=== PATIENT | female | born 1985 | race Caucasian/White ===

== ENCOUNTER → 2016-11-07 | Outpatient (CLI) | payer SELFPAY ==
[~2016-11-07] MED LIST: PRENAT PO
== END | disposition home or self-care (01) ==
LOC: CANPRECLI → OBT 13:35
PROVIDERS: ATTEND Obstetrics & Gynecology
DX: Z02.9 Encounter for administrative examinations, unspecified (principal)

== ENCOUNTER 2016-11-26 19:05 | Outpatient (CLI) | payer OTHER ==
[~2016-11-26] VITALS: Ht 172.7 cm; Wt 75.9 kg
[2016-11-26] MEDS ORDERED: PRENAT PO (19:17)
[2016-11-26 19:18] VITALS: BP 106/60; PULSE 92; RESP 18
--- NOTE | 2016-11-26 20:30 | PN ---
Date/Time of Note Date/Time of Note DATE: 11/26/16 TIME: 20:17 OB Subjective Subjective Subjective 31 yo P2 @ 35 wks, presents with nausea and vomitting, now completely resolved. She also had a headache, which is now resolved. Good FM, no VB, no LOF, no ctx patient still feels some dizziness OB Objective Objective Objective Abdomen- gravid, n/t SVE- deferred FHT-140's; Cat I [place]-no ctx Abdomen: WNL Membranes: Intact Varibility: Moderate Contractions on Admission: None OB Assessment/Plan Other Assessment: 31 yo P2@ 35 wks, w dizziness, nausea and vomitting now resolving - reassuring status Other plan: Will send CBC and electrolytes patient declines IV fluids if nml labs, will d/c home MICKY PATTERSON MD Nov 26, 2016 20:27
[2016-11-26 20:50] LABS: ADD SCAN DIFF NO
[2016-11-26 20:52] LABS: BASOPHIL # 0.1 10^3/ul (0.0-0.1); BASOPHILS % 0.7 % (0.0-2.0); EOSINOPHILS # 0.1 10^3/ul (0.0-0.5); EOSINOPHILS % 0.7 % (0.0-7.0); HEMATOCRIT 37.9 % (37.0-47.0); HEMOGLOBIN 12.5 g/dl (12.0-16.0); LYMPHOCYTES # 3.1 10^3/ul (0.8-2.9); LYMPHOCYTES % 20.8 % (15.0-51.0); MEAN CORPUSCULAR HEMOGLOBIN 26.7 pg (29.0-33.0); MEAN CORPUSCULAR VOLUME 80.8 fl (82.0-101.0); MEAN PLATELET VOLUME 10.9 fl (7.4-10.4); MONOCYTE # 0.9 10^3/ul (0.3-0.9); MONOCYTES % 5.8 % (0.0-11.0); NEUTROPHIL # 10.2 10^3/ul (1.6-7.5); NEUTROPHILS % 68.4 % (39.0-77.0); PLATELET COUNT 202 10^3/UL (140-415); RED BLOOD COUNT 4.69 10^6/ul (4.20-5.40); RED CELL DISTRIBUTION WIDTH 13.1 % (11.5-14.5); WHITE BLOOD COUNT 14.9 10^3/ul (4.8-10.8)
[2016-11-26 20:59] LABS: ADD UMIC NO; URINE BILIRUBIN (Dip) NEGATIVE (NEGATIVE); URINE BLOOD (Dip) NEGATIVE (NEGATIVE); URINE COLOR LT. YELLOW (YELLOW); URINE GLUCOSE (Dip) NEGATIVE (NEGATIVE); URINE KETONES (Dip) NEGATIVE (NEGATIVE); URINE LEUKOCYTE ESTERASE (Dip) NEGATIVE (NEGATIVE); URINE NITRITE (Dip) NEGATIVE (NEGATIVE); URINE TOTAL PROTEIN (Dip) NEGATIVE (NEGATIVE); URINE UROBILINOGEN (Dip) 0.2 E.U./dL (0.1-1.0)
[2016-11-26 21:07] LABS: ALBUMIN 3.9 g/dl (3.3-4.9)
[2016-11-26 21:08] LABS: POTASSIUM 3.9 mmol/L (3.5-5.1)
[2016-11-26 21:10] LABS: ALBUMIN/GLOBULIN RATIO 1.11; BILIRUBIN,INDIRECT 0.2 mg/dl (0-1.1); BILIRUBIN,TOTAL 0.2 mg/dl (0.2-1.3); CREATININE 0.45 mg/dl (0.44-1.00); TOTAL PROTEIN 7.4 g/dl (6.1-8.1)
[2016-11-26 21:11] LABS: CALCIUM 10.1 mg/dl (8.4-10.2)
== END 2016-11-26 21:36 | disposition home or self-care (01) ==
LOC: OBT 19:05 → L-D 19:06 → OBT 21:36
PROVIDERS: ATTEND Obstetrics & Gynecology
DX: O21.2 Late vomiting of pregnancy (principal); R42 Dizziness and giddiness; Z3A.35 35 weeks gestation of pregnancy
CPT/HCPCS: 80053; 81003; 85025; Z7500; G0463

== ENCOUNTER 2016-12-08 13:06 | Outpatient (CLI) | payer OTHER ==
[~2016-12-08] VITALS: Ht 172.7 cm; Wt 76.6 kg
[2016-12-08 13:17] VITALS: Ht 172.7 cm; Wt 76.6 kg
[2016-12-08 13:24] VITALS: BP 97/55; PULSE 120; RESP 20
--- NOTE | 2016-12-08 15:01 | RADRPT ---
PROCEDURE: US OB biophysical profile. CLINICAL INDICATION: decreased movements TECHNIQUE: Multiple sonographic images of the pelvis were obtained. The images were reviewed on a PACS workstation. COMPARISON: No prior studies are available for comparison. FINDINGS: There is a single viable intrauterine gestation. Cardiac activity is present with 140 beats per min tracey. There is a vertex presentation. The placenta is posterior. There is no evidence of placental abruption. There is a normal amount of amniotic fluid with an ALLEN = 17.9 cm. Biophysical profile: movement 2/2 tone 2/2. breathing 2/2 ALLEN 2/2 Total 05/09 RPTAT: AA . IMPRESSION: Normal biophysical profile. . .Iban Haskins MD, MD Date Time Electronically viewed and signed by .Iban Haskins MD, MD on 12/08/2016 15:01 .S/
--- NOTE | 2016-12-08 15:43 | TRIAGE ---
OB Triage Datetime Report Generated by CPN: 12/08/2016 15:42 Datetime: 12/08/2016 15:03 Labor Evaluation Frequency: 0 Monitor Mode: External Resting Tone [place]: Relaxed Monitor Mode: External US Variability: Moderate 6-25 bpm Decelerations: None Comments: 140 Membrane Status: Intact Datetime: 12/08/2016 14:21 Labor Evaluation Frequency: 0 Monitor Mode: External Resting Tone [place]: Relaxed Heart Rate FHR Baseline Rate: 140 Monitor Mode: External US FHR Baseline Changes: No Baseline Change Variability: Moderate 6-25 bpm Accelerations: 15X15 Decelerations: None Category: Category I Pain Presence: None/Denies Datetime: 12/08/2016 13:57 Comments: LOSS OF CONTACT BABY MOVED Datetime: 12/08/2016 13:48 Labor Evaluation Frequency: 0 Monitor Mode: External Resting Tone [place]: Relaxed Monitor Mode: External US FHR Baseline Changes: No Baseline Change Variability: Moderate 6-25 bpm Accelerations: 15X15 Decelerations: Prolonged Category: Category I Pain Assessment Pain Scale: 0 Pain Presence: None/Denies Datetime: 12/08/2016 13:43 Vaginal Exam Dilatation (cms): 0.5 Effacement (%): 30 Station: -2 Exam By: OS Vaginal Bleeding: None Cervix, Consistency: Firm Cervix, Position: Posterior Datetime: 12/08/2016 13:31 Labor Evaluation Frequency: 0 Monitor Mode: External US FHR Baseline Changes: No Baseline Change Variability: Moderate 6-25 bpm Accelerations: 10X10 Category: Category I Pain Assessment Pain Scale: 0 Pain Presence: None/Denies Datetime: 12/08/2016 13:23 Stage of : OB Triage Assessment Type: Triage Maternal Assessment Level of Consciousness: Fully Conscious DTR's/Clonus: DTRs 2+; No Clonus Headache: Denies Blurred Vision: No Respiratory Effort: Unlabored; Regular Rhythm; Equal Expansion Breath Sounds, Left: Clear and Equal Breath Sounds, Right: Clear and Equal Nausea/Vomiting: Denies RUQ Epigastric Pain: Denies Lower Extremities Edema: None Degree: None Upper Extremities Edema: None Degree: None Facial Edema: None Temperature Route: Oral Fall Risk Assessment History of Falling: (0) No Secondary Diagnosis: (0) No Ambulatory Aid: (0) Bedrest/Nurse Assist IV Therapy: (0) No Gait: (0) Normal/Bedrest/Immobile Mental Status: (0) Oriented to Own Ability Fall Score: 0 Fall Risk Score Definition: No Risk: No action required Monitor Mode: External Monitor Mode: External US Pain Assessment Pain Scale: 0 Vaginal Exam Dilatation (cms): deffer Datetime: 12/08/2016 13:13 Time of Arrival: 12/08/2016 13:13 EGA: 36.2 Arrived By: Ambulatory Arrived From: Dr. White Chief Complaint: decreased movement Movement: Decreased Contractions: Denies/Absent Contractions: NONE Rupture of Membranes: Denies Vaginal Bleeding: None Vaginal Discharge: Denies Recent Sexual Intercouse: Denies Abdominal Trauma: Not Applicable Patient Complaints: Cramping Additional Patient Complaints: chronic joint pains Time Provider Notified: 12/08/2016 14:02 Provider Notified: DR STEVENSON Initial Plan: PT SEEN BY DR STEVENSON ,NST AND BPP AND VE DONE Datetime: 11/26/2016 20:00 Stage of : OB Triage Temperature Route: Oral Labor Evaluation Frequency: 0 Monitor Mode: External Pattern: Normal: <= 5 Contractions in 10 Minutes Resting Tone [place]: Relaxed Heart Rate FHR Baseline Rate: 140 Monitor Mode: External US Variability: Moderate 6-25 bpm Accelerations: 15X15 Decelerations: None Category: Category I Pain Assessment Pain Scale: 6 Pain Presence: Constant Pain Type: Burning Pain Location: Abdomen Pain Goal: 0 Pain Relief Measures: Comfort Measures Datetime: 11/26/2016 19:29 Assessment Type: Triage Maternal Assessment Level of Consciousness: Fully Conscious DTR's/Clonus: DTRs 2+; No Clonus Headache: Denies Blurred Vision: No Respiratory Effort: Unlabored; Regular Rhythm; Equal Expansion Breath Sounds, Left: Clear and Equal Breath Sounds, Right: Clear and Equal Nausea/Vomiting: Denies RUQ Epigastric Pain: Denies Lower Extremities Edema: None Upper Extremities Edema: None Facial Edema: None Fall Risk Assessment History of Falling: (0) No Secondary Diagnosis: (0) No Ambulatory Aid: (0) Bedrest/Nurse Assist IV Therapy: (0) No Gait: (0) Normal/Bedrest/Immobile Mental Status: (0) Oriented to Own Ability Fall Score: 0 Fall Risk Score Definition: No Risk: No action required Datetime: 11/26/2016 19:27 Time of Arrival: 11/26/2016 18:51 EGA: 34.4 Arrived By: Ambulatory Arrived From: Home Chief Complaint: EPIGASTRIC PAIN, DIZZINESS AND VOMITTING Movement: Present Contractions: Denies/Absent Vaginal Bleeding: None Vaginal Discharge: Denies Patient Complaints: Nausea; Vomiting; Epigastric Pain Time Provider Notified: 11/26/2016 19:55 Provider Notified: ELVA Initial Plan: EFM, ASSESSMENT, CALL MD FOR ORDERS Datetime: 11/26/2016 19:25 Membrane Status: Intact
== END 2016-12-08 15:36 | disposition home or self-care (01) ==
LOC: OBT 13:06 → L-D 13:07 → OBT 15:36
PROVIDERS: ATTEND Obstetrics & Gynecology
DX: O36.8130 Decreased fetal movements, third trimester, not applicable or unspecified (principal); Z3A.36 36 weeks gestation of pregnancy
CPT/HCPCS: 76818; Z7500; G0463

== ENCOUNTER 2016-12-19 00:23 | Inpatient (IN) | payer OTHER ==
--- NOTE | 2016-12-08 16:17 | CONS ---
Date/Time of Note Date/Time of Note DATE: 12/08/16 TIME: 16:09 Consultation Date/Type/Reason Admit Date/Time December 08, 2069 OB triage consultation note Initial Consult Date Reason for Consultation Main complaint decreased movement epigastric pain 24 HR Interval Summary Free Text/Dictation 30 30 This patient is a 31 years old 3 para 2 whose last menstrual period was on April 03, 2016 . By . Ultrasound her due date was placed at January 03, 2017 which makes her 36 weeks and 2 days now She came to triage area complaining of decreased movement and epigastric pain since noontime On examination her vital signs are normal blood pressure 120/50 pulse rate 124 temperature 98.6 oxygen saturation 90. heart tone was normal averaging 1 40/min . On examination her ear nose throat appear to be normal neck was normal chest was clear. Abdomen was soft is having occasional contractions heart tone is normal baby apparently is in vertex presentation. NST was reactive and biophysical was performed which was reported as 8/8. . Posterior placenta no evidence of placenta abruption .. Amniotic fluid level was 17.9 cm On pelvic exam her cervix was 30% effaced head at -2 station cervix was 0.5 cm dilated Detailed Summary Eyes: No discharge, No no complaints, No other, No pain, No redness, No visual change ENT: No bleeding, No congestion, No discharge, No dysphagia, No no complaints, No other, No pain, No sore throat Respiratory: No cough, No no complaints, No other, No pain, No pleuritic pain, No shortness of breath, No sputum, No wheezing Cardiovascular: No chest pain, No edema, No lightheadedness, No no complaints, No orthopenea, No other, No palpitations, No paroxysmal nocturnal dyspnea Gastrointestinal: No blood, No constipation, No decreased appetite, No diarrhea , No flatus, No nausea, No no complaints, No other, No pain, No passing stool, No vomiting Genitourinary: other (As I mentioned in the text her cervix was slightly dilated 30% effaced and head at -2 station), No bleeding, No discharge, No dysuria, No flank pain, No hematuria, No no complaints Musculoskeletal: No back pain, No bone/joint pain, No neck pain, No no complaints, No other, No restricted range of motion, No swelling Skin: No bruising, No erythema, No laceration, No no complaints, No other, No pruritis, No rash, No skin lesions Neurologic: No confusion, No dizziness, No focal-weakness, No headache, No no complaints, No other, No seizure, No syncope Endocrine: No dry skin, No no complaints, No other, No polydypsia, No polyuria , No temp intolerance Lymphatic: No adenopathy, No lymphadema, No no complaints, No other, No tender nodes Psychological: No anxiety, No confusion, No depression, No nl mood/affect, No no complaints, No other, No suicidal Immunologic: No immunodeficiency, No no complaints, No other, No pruritis, No rhinitis, No urticaria Additional Comments Disposition. With these positive results patient was discharged home to be followed in the clinic end of dictation thank you KRUNAL GARCIA MD Dec 08, 2016 16:17
[~2016-12-19] VITALS: Ht 172.7 cm; Wt 77.0 kg
[2016-12-19 00:43] VITALS: Ht 172.7 cm; Wt 77.0 kg
[2016-12-19 00:44] VITALS: BP 114/68; PULSE 88; RESP 18
[2016-12-19] MEDS: LACTATED RINGER'S 1,000 ML IV SCH ×4 (01:25→16:33)
[2016-12-19] MEDS ORDERED: AMPICILLIN 2 GM/NS (PMX) 100 ML IV ONE ×2 (01:30→14:00)
[2016-12-19] MEDS ORDERED: ACETAMINOPHEN/CODEINE #3 TAB PO PRN (01:30)
[2016-12-19] MEDS ORDERED: OXYTOCIN 30 UNITS/LR 500 ML IV PRN ×2 (01:30→23:00)
[2016-12-19] MEDS ORDERED: METHYLERGONOVINE 0.2 MG INJ IM PRN ×2 (01:30→23:00)
[2016-12-19] MEDS ORDERED: LIDOCAINE 1% (MPF) 30 ML INJ INJ PRN (01:30)
[2016-12-19] MEDS ORDERED: IBUPROFEN 600 MG TAB PO PRN (01:30)
[2016-12-19] MEDS ORDERED: OXYTOCIN 30 UNITS/LR 500 ML IV SCH ×2 (01:30)
[2016-12-19] MEDS ORDERED: LACTATED RINGER'S 1,000 ML IV PRN (01:30)
[2016-12-19] MEDS ORDERED: BUTORPHANOL 2 MG INJ IV PRN ×2 (01:30)
[2016-12-19] MEDS ORDERED: MISOPROSTOL 200 MCG TAB PR PRN ×2 (01:30→23:00)
[2016-12-19] MEDS ORDERED: CARBOPROST 250 MCG INJ IM PRN ×2 (01:30→23:00)
[2016-12-19 02:51] LABS: ADD SCAN DIFF NO
[2016-12-19 02:56] LABS: BASOPHILS % 0.3 % (0.0-2.0); EOSINOPHILS # 0.1 10^3/ul (0.0-0.5); EOSINOPHILS % 0.9 % (0.0-7.0); HEMOGLOBIN 10.7 g/dl (12.0-16.0); LYMPHOCYTES # 2.9 10^3/ul (0.8-2.9); LYMPHOCYTES % 25.1 % (15.0-51.0); MEAN CORPUSCULAR HEMOGLOBIN 25.5 pg (29.0-33.0); MEAN CORPUSCULAR HGB CONC 32.4 g/dl (32.0-37.0); MEAN CORPUSCULAR VOLUME 78.6 fl (82.0-101.0); MEAN PLATELET VOLUME 11.6 fl (7.4-10.4); MONOCYTE # 0.9 10^3/ul (0.3-0.9); MONOCYTES % 7.6 % (0.0-11.0); NEUTROPHIL # 7.4 10^3/ul (1.6-7.5); PLATELET COUNT 203 10^3/UL (140-415); RED CELL DISTRIBUTION WIDTH 13.7 % (11.5-14.5); WHITE BLOOD COUNT 11.6 10^3/ul (4.8-10.8)
[2016-12-19 03:13] LABS: INR 0.9; PROTIME 12.1 Sec (12.2-14.2); PT RATIO 0.9
[2016-12-19 03:23] LABS: ALBUMIN 3.2 g/dl (3.3-4.9)
[2016-12-19 03:24] LABS: CHLORIDE 106 mmol/L (97-110); POTASSIUM 3.6 mmol/L (3.5-5.1); SODIUM 141 mmol/L (135-144)
[2016-12-19 03:26] LABS: ANION GAP 17 (8-16); ASPARTATE AMINO TRANSFERASE 24 IU/L (15-46); BILIRUBIN,INDIRECT 0.1 mg/dl (0-1.1); BILIRUBIN,TOTAL 0.1 mg/dl (0.2-1.3); CARBON DIOXIDE 22 mmol/L (21-31); CREATININE 0.46 mg/dl (0.44-1.00)
[2016-12-19 03:27] LABS: ALANINE AMINOTRANSFERASE 17 IU/L (13-69); ALBUMIN/GLOBULIN RATIO 1.03; ALKALINE PHOSPHATASE 130 IU/L (42-121); BLOOD UREA NITROGEN 9 mg/dl (7-20); CALCIUM 9.4 mg/dl (8.4-10.2); GLUCOSE 93 mg/dl (70-220); TOTAL PROTEIN 6.3 g/dl (6.1-8.1)
--- NOTE | 2016-12-19 03:43 | TRIAGE ---
OB Triage Datetime Report Generated by CPN: 12/19/2016 03:43 Datetime: 12/19/2016 03:30 Stage of : Labor Labor Evaluation Frequency: IRREGULAR Monitor Mode: External Duration (sec)2399: 40-50 Quality: Mild Pattern: Normal: <= 5 Contractions in 10 Minutes Resting Tone [place]: Relaxed Heart Rate FHR Baseline Rate: 135 Monitor Mode: External US Variability: Moderate 6-25 bpm Accelerations: 15X15 Decelerations: None Pain Assessment Pain Scale: 5 Pain Presence: Intermittent Pain Type: Contraction Pain Location: Abdomen; Back Pain Goal: 0 Pain Relief Measures: Comfort Measures Datetime: 12/19/2016 02:30 Stage of : Labor Labor Evaluation Frequency: IRREGULAR Monitor Mode: External Duration (sec)2399: 40-50 Quality: Mild Pattern: Normal: <= 5 Contractions in 10 Minutes Resting Tone [place]: Relaxed Heart Rate FHR Baseline Rate: 135 Monitor Mode: External US Variability: Moderate 6-25 bpm Accelerations: 15X15 Decelerations: None Category: Category I Pain Assessment Pain Scale: 5 Pain Presence: Intermittent Pain Type: Contraction Pain Location: Abdomen; Back Pain Goal: 0 Pain Relief Measures: Comfort Measures Datetime: 12/19/2016 02:27 Membrane Status: Ruptured Datetime: 12/19/2016 02:19 Assessment Type: Admission Assessment Vaginal Bleeding: None Maternal Assessment Level of Consciousness: Fully Conscious DTR's/Clonus: DTRs 2+; No Clonus Headache: Denies Blurred Vision: No Respiratory Effort: Unlabored; Regular Rhythm; Equal Expansion Breath Sounds, Left: Clear and Equal Breath Sounds, Right: Clear and Equal Nausea/Vomiting: Denies RUQ Epigastric Pain: Denies Lower Extremities Edema: None Degree: None Upper Extremities Edema: None Degree: None Facial Edema: None Fall Risk Assessment History of Falling: (0) No Secondary Diagnosis: (0) No Ambulatory Aid: (0) Bedrest/Nurse Assist IV Therapy: (20) Yes Gait: (0) Normal/Bedrest/Immobile Mental Status: (0) Oriented to Own Ability Fall Score: 20 Fall Risk Score Definition: No Risk: No action required Pain Assessment Pain Scale: 5 Pain Presence: Intermittent Pain Type: Contraction Pain Location: Abdomen; Back Pain Goal: 0 Datetime: 12/19/2016 01:30 Stage of : OB Triage Labor Evaluation Frequency: IRREGULAR Monitor Mode: External Duration (sec)2399: 40 Quality: Mild Pattern: Normal: <= 5 Contractions in 10 Minutes Resting Tone [place]: Relaxed Heart Rate FHR Baseline Rate: 125 Monitor Mode: External US FHR Baseline Changes: No Baseline Change Variability: Moderate 6-25 bpm Accelerations: 15X15 Decelerations: None Category: Category I Datetime: 12/19/2016 00:54 Vaginal Exam Dilatation (cms): 2.0 Effacement (%): 40 Station: -3 Exam By: Danyelle KNOTT RN Membrane Status: Ruptured Membranes Ruptured Date/Time: 12/18/2016 23:00 Membranes Rupture Method: Spontaneous Amniotic Fluid Color: Clear Amniotic Fluid Amount: Moderate Amniotic Fluid Odor: None Vaginal Bleeding: None Pool: Positive Nitrazine: Positive Cervix, Consistency: Firm Cervix, Position: Posterior Presentation 'A': Cephalic Datetime: 12/19/2016 00:35 Stage of : OB Triage Assessment Type: Triage Time of Arrival: 12/19/2016 00:20 EGA: 37.6 Arrived By: Wheelchair Arrived From: Home Chief Complaint: ROM Movement: Present Rupture of Membranes: Unsure Vaginal Bleeding: None Vaginal Discharge: Present Recent Sexual Intercouse: Denies Abdominal Trauma: Not Applicable Patient Complaints: None (Annotations: Data stored by CPN on behalf of user) Provider Notified: ELVA Initial Plan: CALL AMEENA VELAZQUEZ Maternal Assessment Level of Consciousness: Fully Conscious DTR's/Clonus: DTRs 2+; No Clonus Headache: Denies Blurred Vision: No Respiratory Effort: Unlabored; Regular Rhythm; Equal Expansion Breath Sounds, Left: Clear and Equal Breath Sounds, Right: Clear and Equal Nausea/Vomiting: Denies RUQ Epigastric Pain: Denies Lower Extremities Edema: Bilateral Lower Extremities Degree: 1+ Upper Extremities Edema: None Degree: None Facial Edema: None Temperature Route: Oral Fall Risk Assessment History of Falling: (0) No Secondary Diagnosis: (0) No Ambulatory Aid: (0) Bedrest/Nurse Assist IV Therapy: (0) No Gait: (0) Normal/Bedrest/Immobile Mental Status: (0) Oriented to Own Ability Fall Score: 0 Fall Risk Score Definition: No Risk: No action required Monitor Mode: External Monitor Mode: External US Pain Assessment Pain Scale: 4 Pain Presence: Intermittent Pain Type: Contraction Pain Location: Abdomen; Back Datetime: 12/08/2016 13:23 Fall Score: 0 Fall Risk Score Definition: No Risk: No action required Datetime: 12/08/2016 13:13 EGA: 36.2 Datetime: 11/26/2016 19:29 Fall Score: 0 Fall Risk Score Definition: No Risk: No action required Datetime: 11/26/2016 19:27 EGA: 34.4 Datetime: 11/26/2016 19:26 Membranes Ruptured Date/Time: 12/18/2016 23:00 Membranes Rupture Method: Spontaneous Amniotic Fluid Color: Clear Amniotic Fluid Amount: Moderate
[2016-12-19 04:01] LABS: PARTIAL THROMBOPLASTIN TIME 23.8 Sec (25.0-35.0)
[2016-12-19] MEDS ORDERED: FENTAnyl 2MCG/ML-ROPIV 0.2% 100 ML ONE (04:37)
[2016-12-19] MEDS ORDERED: AMPICILLIN 1 GM/NS (PMX) 50 ML IV SCH ×2 (05:30→18:00)
[2016-12-19] MEDS ORDERED: ONDANSETRON 4 MG INJ IV PRN (06:00)
[2016-12-19] MEDS ORDERED: ONDANSETRON 4 MG INJ ONE (06:06)
[2016-12-19] MEDS: OXYTOCIN 30 UNITS/LR 500 ML IV SCH ×2 (18:02→18:03)
--- NOTE | 2016-12-19 18:16 | HP ---
Date/Time of Note Date/Time of Note DATE: 12/19/16 TIME: 18:10 OB - History Hx of Present Free Text/Dictation 31 y.o A1 (sab) at 37w 5d came to triage after leaking fluid at 2300 12/18 uterine contractions regularily VE 2cm 40% -3 clear fluid admitted for expectant management poss pitocin augmentation Chief Complaint: leaking fluid with uc Estimated Due Date: Jan 03, 2017 : 4 Para: 2 Spontaneous : 1 Therapeutic : 0 Ultrasounds: Normal mid trimester US Obstetrical Complications: None Past Family/Social History * Past Medical, Surgical, Family and Obstetric Histories reviewed from chart. Blood Type: A+ Rubella: immune RPR/VDRL: Negative GBS Status: Negative HBsAG: Negative OB Admission Exam Vital Signs Vital Signs Vital Signs Date Time Temp Pulse Resp B/P Pulse Ox O2 Delivery O2 Flow Rate FiO2 12/19/16 00:44 98.0 88 18 114/68 Room Air Physical Exam HEENT: WNL Heart: Rhythm Normal Lungs: Clear, Equal Abdomen: WNL Extremities: Normal Reflexes: Normal Cervical Dilatation: 2cm Effacement: 50% Station: -3 Amniotic Fluid: Clear Heart Rate: 130's Accelerations: Accelerations Present Decelerations: Variable Decelerations Varibility: Moderate Contractions on Admission: < 5 Minutes Apart Intensity: Mild Last 72 hours Lab Results CBC & BMP 12/19/16 01:25 Liver Function Test 12/19/16 01:25 Alanine Aminotransferase (ALT/SGPT) 17 Albumin 3.2 L Alkaline Phosphatase 130 H Aspartate Amino Transf (AST/SGOT) 24 Direct Bilirubin 0.00 Total Protein 6.3 OB Assessment/Plan Reason for admission: rupture of membranes Other Assessment: IUP 37w5d in early labor Plan: Expectant Management RONNI STEVENSON MD Dec 19, 2016 18:16
--- NOTE | 2016-12-19 18:19 | LDN ---
Date/Time of Note Date/Time of Note DATE: 12/19/16 TIME: 18:16 Delivery Summary Placenta Delivered: Spontaneously Meconium: none Perineum intact?: Yes Anesthesia type: Epidural Estimated blood loss: 100 Sponge & Needle done & correct: Yes All needle counts correct: Yes Any foreign bodies felt in the: No Problems: Infant Delivery Information Sex Infant Sex: female Apgars 1 Minute: 9 5 Minute: 9 Suctioning Nose & mouth suctioned at zakiya: Yes Delee suction performed: No Umbilical Cord Umbilical cord with: 3 Vessels Cord presentations: no nuchal cord Cord Blood was obtained: Yes Mother & Baby Disposition Disposition Mom & Baby to Maternity; Good: Yes Mom transferred to: Other () Baby to NICU: No RONNI STEVENSON MD Dec 19, 2016 18:19
--- NOTE | 2016-12-19 21:05 | DELSUM ---
Delivery Summary A-C Datetime Report Generated by CPN: 12/19/2016 21:05 DELIVERY PERSONNEL Cherry Dipper: Sondra, Irina MATERNAL INFORMATION Delivery Anesthesia: Epidural Medications in Delivery: 30 UNIT PITOCIN Estimated Blood Loss (ml): 250 Placenta Cultured: No Maternal Complications: None LABOR SUMMARY EDC: 01/03/2017 00:00 No. Babies in Womb: 1 Attempted: No Labor Anesthesia: None LABOR INFORMATION Reason for Induction: Not Applicable Onset of Labor: 12/18/2016 23:00 Complete Dilatation: 12/19/2016 17:10 Oxytocin: Augmentation Group B Beta Strep: Negative Antibiotics # of Doses: 1 Antibiotics Time of Last Dose: 12/19/2016 14:05 Steroids Given: None Reason Steroids Not Administered: Not Applicable MEMBRANES Membranes Rupture Method: Spontaneous Membranes Rupture Method: Spontaneous Rupture of Membranes: 12/18/2016 23:00 Rupture of Membranes: 12/18/2016 23:00 Length of Rupture (hr): 18.55 Length of Rupture (hr): 18.55 Amniotic Fluid Color: Clear Amniotic Fluid Color: Clear Amniotic Fluid Amount: Moderate Amniotic Fluid Amount: Moderate Amniotic Fluid Odor: None STAGES OF LABOR Stage 1 hr: 18 Stage 1 min: 10 Stage 2 hr: 0 Stage 2 min: 23 Stage 3 hr: 0 Stage 3 min: 6 Total Time in Labor hr: 18 Total Time in Labor min: 39 VAGINAL DELIVERY Episiotomy: None Laceration Extension: N/A Laceration Type: None Laceration Repair: No Initial Vag Sponge Count: 20 Final Vag Sponge Count: 20 Initial Vag Sharps Count: 1 Final Vag Sharps Count: 1 Sponge Count Correct: Yes; Vaginal Sweep Performed Sharps Count Correct: Yes BABY A INFORMATION Delivery Date/Time: 12/19/2016 17:33 Method of Delivery: Vaginal Born in Route : No : N/A Forceps: N/A Vacuum Extraction: N/A Shoulder Dystocia : No SHOULDER DYSTOCIA BABY A Infant Delivery Date/Time: 12/19/2016 17:33 PRESENTATION/POSITION BABY A Presentation: Cephalic Cephalic Presentation: Vertex Vertex Position: Left Occipital Anterior Breech Presentation: N/A PLACENTA INFORMATION BABY A Placenta Delivery Time : 12/19/2016 17:39 Placenta Method of Delivery: Spontaneous Placenta Status: Delivered SCORES BABY A Heart Rate 1 min: >100 bpm Resp Effort 1 min: Good Cry Reflex Irritability 1 min: Cough/Sneeze/Pulls Away Muscle Tone 1 min: Active Motion Color 1 min: Body [place], Extremit Blue Resuscitation Effort 1 min: Tactile Stimulation SCORE 1 MIN: 9 Heart Rate 5 min: >100 bpm Resp Effort 5 min: Good Cry Reflex Irritability 5 min: Cough/Sneeze/Pulls Away Muscle Tone 5 min: Active Motion Color 5 min: Body [place], Extremit Blue Resuscitation Effort 5 min: Tactile Stimulation SCORE 5 MIN: 9 INFANT INFORMATION BABY A Gestational Age at Delivery: 37.6 Gestational Status: Early Term- 37- 38.6 Weeks Infant Outcome : Liveborn Infant Condition : Stable Infant Sex: Female IDENTIFICATION/MEDS BABY A ID Band Number: [id number] ID Band Location: Right Leg; Left Arm Sensor Applied: Yes Sensor Number: [id number] Sensor Location : Cord Clamp Vitamin K Given : Not Given Erythromycin Given: Not Given WEIGHT/LENGTH BABY A Infant Birthweight (gm): 2995 Weight (lb): 6 Infant Weight (oz): 10 Infant Length (in): 20.00 Length (cm): 50.80 CORD INFORMATION BABY A No. 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
[2016-12-19] MEDS ORDERED: KETOROLAC 30 MG INJ IV STA (21:31)
[2016-12-19 21:50] VITALS: BP 110/63; PULSE 62; RESP 20
[2016-12-19 22:30] VITALS: BP 104/61; PULSE 62; RESP 16; RESP 20
[2016-12-19] MEDS ORDERED: OXYCODONE/ASPIRIN (4.88/325) TAB PO PRN (23:00)
[2016-12-19] MEDS ORDERED: BENZOCAINE 20% 56 ML SPRAY TOP PRN (23:00)
[2016-12-19] MEDS ORDERED: WITCH HAZEL/GLYCERIN PAD PR PRN (23:00)
[2016-12-19] MEDS ORDERED: LANOLIN 7 GM TUBE TOP PRN (23:00)
[2016-12-19] MEDS ORDERED: ZOLPIDEM 5 MG TAB PO PRN (23:00)
[2016-12-20] VITALS: BP 108/60; PULSE 63; RESP 20
[2016-12-20] MEDS: IBUPROFEN 600 MG TAB PO SCH ×4 (00:05→17:34)
[2016-12-20 04:00] VITALS: BP 102/57; PULSE 96; RESP 16
[2016-12-20] MEDS: OXYCODONE/ASPIRIN (4.88/325) TAB PO PRN ×3 (04:00→10:14)
[2016-12-20 07:52] LABS: ADD SCAN DIFF NO
[2016-12-20 08:00] LABS: BASOPHIL # 0.1 10^3/ul (0.0-0.1); BASOPHILS % 0.3 % (0.0-2.0); EOSINOPHILS # 0.1 10^3/ul (0.0-0.5); EOSINOPHILS % 0.7 % (0.0-7.0); HEMATOCRIT 32.7 % (37.0-47.0); HEMOGLOBIN 10.6 g/dl (12.0-16.0); LYMPHOCYTES # 2.6 10^3/ul (0.8-2.9); LYMPHOCYTES % 16.5 % (15.0-51.0); MEAN CORPUSCULAR HEMOGLOBIN 25.7 pg (29.0-33.0); MEAN CORPUSCULAR HGB CONC 32.4 g/dl (32.0-37.0); MEAN CORPUSCULAR VOLUME 79.4 fl (82.0-101.0); MEAN PLATELET VOLUME 11.2 fl (7.4-10.4); MONOCYTE # 1.3 10^3/ul (0.3-0.9); MONOCYTES % 8.6 % (0.0-11.0); NEUTROPHIL # 11.3 10^3/ul (1.6-7.5); NEUTROPHILS % 72.6 % (39.0-77.0); PLATELET COUNT 190 10^3/UL (140-415); RED BLOOD COUNT 4.12 10^6/ul (4.20-5.40); RED CELL DISTRIBUTION WIDTH 13.8 % (11.5-14.5); WHITE BLOOD COUNT 15.5 10^3/ul (4.8-10.8)
[2016-12-20 08:10] VITALS: BP 97/50; PULSE 79; RESP 16
[2016-12-20] MEDS: SENNA/DOCUSATE NA (8.6MG/50MG) TAB PO SCH ×2 (09:14→21:14)
--- NOTE | 2016-12-20 14:17 | PN ---
Date/Time of Note Date/Time of Note DATE: 12/20/16 TIME: 14:07 OB Subjective Subjective Subjective doing fine wants to go home OB Objective Objective Objective vss afebrile fundus firm lochia min calf no tenderness OB Assessment/Plan Other Assessment: stable post #1 Other plan: discharge home in am early RONNI STEVENSON MD Dec 20, 2016 14:17
--- NOTE | 2016-12-20 14:18 | DS ---
Date/Time of Note Date/Time of Note DATE: 12/20/16 TIME: 14:17 Obstetrical Discharge Record Final Diagnosis Final Diagnosis: Term delivered Vaginal Delivery Obstetrical Delivery: Spontaneous Complications Augmentation: Yes Induction: No Condition on Discharge Physical Assessment Last Vitals: vss afebrile Voiding: Yes Bowel Movement: No Breast: Soft, non-tender Fundus: Firm Calf Tenderness: No Patient Condition: Stable RONNI STEVENSON MD Dec 20, 2016 14:18
--- NOTE | 2016-12-20 14:19 | PD.PPDC ---
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
[2016-12-20] MEDS: MAGNESIUM HYDROXIDE 30ML CUP PO SCH ×3 (14:38→21:15)
[2016-12-20 16:33] VITALS: BP 95/54; PULSE 78; RESP 18
[2016-12-20 20:15] VITALS: BP 117/77; PULSE 97; RESP 16
[2016-12-21] MEDS: IBUPROFEN 600 MG TAB PO SCH ×3 (00:18→13:10)
[2016-12-21 04:00] VITALS: BP 114/69; PULSE 83; RESP 18
[2016-12-21 08:15] VITALS: BP 104/73; PULSE 80; RESP 20
[2016-12-21] MEDS ORDERED: DIPHTH/TET/ACEL PERTUSS (ADULT) 0.5 ML VIAL IM* ONE (09:00)
== END 2016-12-21 13:55 | disposition home or self-care (01) | DRG 775 ==
LOC: OBT 00:23 → L-D 00:23 → OBT 00:55 → L-D 02:39 → PP1 22:16
PROVIDERS: ADMIT Obstetrics & Gynecology; ATTEND Obstetrics & Gynecology
PROC: 10E0XZZ Delivery of Products of Conception, External Approach (ICD-10-PCS; principal; 2016-12-19)
PROC: 4A1HX4Z Monitoring of Products of Conception, Cardiac Electrical Activity, External Approach (ICD-10-PCS; 2016-12-19)
DX: O76 Abnormality in fetal heart rate and rhythm complicating labor and delivery (principal); Z37.0 Single live birth; Z3A.37 37 weeks gestation of pregnancy
CPT/HCPCS: 36415; 62319; 80053; 85025; 85610; 85730; 86592; 86762; 86900; 86901; 87340; 90715; G0463; J0290; J1885; J2210; J2405; J2590; J3010; J7120